=== PATIENT | female | born 1990 ===

== ENCOUNTER 2022-09-10 10:47 | Outpatient (REF) | payer BC, SELFPAY ==
[2022-09-10 12:13] LABS: Alanine Aminotransferase 13 U/L (0-31); Albumin Level 4.4 g/dL (3.5-5.0); Alkaline Phosphatase 75 U/L (39-117); Anion Gap 12 (12-20); Aspartate Amino Transferase 21 U/L (5-31); Bilirubin Total 0.7 mg/dL (0.0-1.0); Blood Urea Nitrogen 12 mg/dL (9-16); Calcium 9.8 mg/dL (8.4-10.2); Carbon Dioxide 26 mmol/L (22-29); Chloride 105 mmol/L (96-108); Cholesterol 180 mg/dL; Estimated Glomerular Filt Rate > 60; Glucose Random 92 mg/dL (60-115); HDL Cholesterol 68 mg/dL; LDL Cholesterol Calculated 104 mg/dl; Magnesium 2.1 mg/dL (1.6-2.6); Phosphorus 3.6 mg/dL (2.7-4.5); Potassium 4.3 mmol/L (3.3-5.1); Sodium 139 mmol/L (135-145); Total Protein 7.3 g/dL (6.5-8.0); Triglycerides 42 mg/dL
[2022-09-10 12:31] LABS: TSH reflex Free T4 1.79 uIU/mL (0.32-4.0); Vitamin D 25-OH Total 31.4 ng/mL (>30)
== END 2022-09-10 10:48 | disposition home or self-care (01) ==
LOC: HO.LAB 10:47
PROVIDERS: PCP Nurse Practitioner Family; Visit Provider Nurse Practitioner Family
DX: Z13.220 Encounter for screening for lipoid disorders (principal); Z13.29 Encounter for screening for other suspected endocrine disorder; Z13.21 Encounter for screening for nutritional disorder; R25.3 Fasciculation
CPT/HCPCS: 36415; 80053; 80061; 82306; 83735; 84100; 84443

== ENCOUNTER 2022-09-21 08:48 | Outpatient (AMB) | payer BC, SELFPAY ==
--- NOTE | 2022-09-21 09:02 | MHC.OFFVIS ---
Intake Vital Signs 09/21/22 09:05 Height 5 ft 2 in Weight 135 lb BMI 24.7 BP 118/78 Blood Pressure Location Rt brachial Position Sitting Pulse 69 Intake Visit Reasons: Umbilical hernia Intake Note: Patient here for umbilical hernia. 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 C/o abd spasms for the past 6 wks. C/ intermittent constipation. 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 She has had this since her youth. Has become progressively more symptomatic enlarging. She is otherwise tolerating a diet and having normal bowel habits. Chart was reviewed and patient evaluated [facility] Medical History Umbilical hernia Surgical History No pertinent past surgical history Family History Mother Diabetes Arthritis Pulmonary embolism Father No problems noted. Social History Housing: House Alcohol intake: current Alcohol intake frequency: holidays/special occasions only Patient Tobacco Use Status: Never used Tobacco e-Cigarette/Vaping Use: Never Used Substance Use Type: Marijuana service: No Current occupational status: student Current occupational exposures/hazards: No Cognitive needs: No Hearing needs: No Vision needs: No Physical Exam Vital Signs: Last Vital Signs Pulse 69 09/21/22 09:05 BP 118/78 09/21/22 09:05 BMI result Body Mass Index 24.7 Chest Other: Chest breath sounds bilaterally, HS 1 in 2 GI Other: Patient was examined both supine and standing with Valsalva. Abdomen soft, scaphoid. Approximately 3 cm incarcerated umbilical hernia. Assessment & Plan Assessment & Plan (1) Umbilical hernia: Code(s): K42.9 - Umbilical hernia without obstruction or gangrene Plan Risks, benefits, alternatives of open umbilical hernia with mesh reviewed the patient included but not limited to bleeding, infection, recurrence, numbness, pain, scarring, bowel injury and the patient wishes to proceed. All questions were answered. Arrangements will be made for this Coding Level of Care Code New Pt Level 4 (81215) Diagnoses Umbilical hernia K42.9
[2022-09-21 09:05] VITALS: BP 118/78; PULSE 69; BMI 24.7
== END 2022-09-21 09:31 | disposition home or self-care (01) ==
PROVIDERS: PCP Nurse Practitioner Family; Referring Provider Nurse Practitioner Family; Visit Provider Surgery
DX: K42.9 Umbilical hernia without obstruction or gangrene (principal)
CPT/HCPCS: 99204

== ENCOUNTER → 2022-09-21 08:48 | Outpatient (BNVA) | payer BC, SELFPAY | PROVIDERS: PCP Nurse Practitioner Family; Referring Provider Nurse Practitioner Family; Visit Provider Surgery ==

== ENCOUNTER 2022-10-09 05:56 | Day surgery (SDC) | payer BC, SELFPAY ==
[2022-10-04 08:28] VITALS: BMI 24.7
--- NOTE | 2022-10-08 12:47 | MHC.SHP ---
Pre-Procedural Eval Section A Date of Service: 10/08/22 The patient is an INPATIENT: No Changes since office visit: No Cold of Flu in the past 2 weeks, No New Medical Problems, No Changes in Medication and No Patient answered all questions The History & Physical has been completed within 30 days and I have reviewed it.: Yes Section B Chief Complaint: Umbilical hernia without obstruction or gangrene Allergies: Allergies Allergy/AdvReac Type Severity Reaction Status Date / Time No Known Allergies Allergy Verified 09/21/22 09:07 Plan I have reviewed the history and physical and performed a pertinent physical examination on my patient. No changes have occurred unless specified. Time Spent With Patient Time: Total time managing care of this patient today ____ minutes.
[2022-10-09 06:17] VITALS: BP 114/65; PULSE 66; RESP 16; TEMP 36.9; O2SAT 100; BMI 24.7
[2022-10-09 06:25] LABS: UPreg QC Valid YES; Urine Pregnancy NEGATIVE (NEGATIVE)
[2022-10-09] MEDS: Lactated Ringers 1,000 ML 100 ML IVCONT (06:39)
--- NOTE | 2022-10-09 07:11 | HO.ANESPROP2 ---
FORM[facility]LY [facility] Active Problems Active Problems: All Active Problems (Updated 10/09/22 @ 06:40 by Soledad Vega) Muscle twitching (Acute) Umbilical hernia (Acute) Family History Family History Mother Diabetes Arthritis Pulmonary embolism Father No problems noted. Surgical History Surgical History No pertinent past surgical history Umbilical hernia [place] teeth removed History of Problems with Anesthesia: No Social History Social History Housing: House Alcohol intake: current Alcohol intake frequency: holidays/special occasions only Patient Tobacco Use Status: Never used Tobacco e-Cigarette/Vaping Use: Never Used Use of substances other than those prescribed or required for medical reasons: Yes Substance Use Type: Marijuana Substance Use Type Other:: THC edibles Substance Use Frequency: Occasionally Are you DNR?: No Advance Directives: No Advance Directives Information Provided: Yes service: No Current occupational status: student Current occupational exposures/hazards: No Cognitive needs: No Hearing needs: No Vision needs: No Meds Allergies Allergy/AdvReac Type Severity Reaction Status Date / Time Penicillins [PCN] Allergy Vomiting Verified 10/09/22 06:24 Active Medications: Current Medications Lactated Ringer's (Lr) 1,000 mls @ 100 mls/hr IVCONT .Q10H MAGDA Last Admin: 10/09/22 06:39 Dose: 100 mls/hr Home Medications Medication Instructions Recorded Confirmed Last Taken Type multivitamin 1 tab PO DAILY 09/21/22 10/09/22 Unknown History Exam Exam Date and Time: October 09, 2022 0711 Height,Weight and Vital Signs: Height 5 ft 2 in Weight 61.235 kg Last Vital Signs Temp 98.4 F 10/09/22 06:17 Pulse 66 10/09/22 06:17 Resp 16 10/09/22 06:17 BP 114/65 10/09/22 06:17 Pulse Ox 100 10/09/22 06:17 O2 Del Method Room Air 10/09/22 06:17 Pertinent Lab Results Pertinent Lab Results: Laboratory Tests 10/09/22 06:15 Urine Test NEGATIVE Airway Mallampati Class: II TM Dist: >3cm Neck ROM: Full Loose/Missing/Broken Teeth: No Heart: RRR Lungs: CTA Assessment and Plan Assessment Anesthesia Assessment: Anesthesia Plan Discussed and Chart Reviewed Final Anesthetic Review History of Problems with Anesthesia: No NPO: Yes ASA Class: I Final Preanesthetic Review: Meds/Allgs Chart Reviewed, Consent Obtained/Reviewed and Anes Risks/Benef Reviewed Patient Risk: Low Procedure Risk: Low Anesthetic Plan Anesthetic Plan: MAC: Disposition: Standard PACU
--- NOTE | 2022-10-09 08:04 | W.PM.OPN ---
Operative Note Operative Note Date of Service: 10/09/22 Narrative: Preoperative diagnosis: [] Incarcerated umbilical hernia Postop diagnosis: [] Same Procedure [] repair incarcerated umbilical hernia with Bard mesh Surgeon: [] John Equipment Mechanic Specialist: [] dipesh Villeda Type of Anesthesia: [] MAC Indication for surgery: [] Proximally 2 cm incarcerated umbilical hernia with omental contents Findings: [] Patient is brought to the operating room, placed on operative table in a supine position, after an adequate level of MAC anesthesia was induced, the patient's abdomen was prepped and draped in usual sterile fashion and the proposed incisional site was infiltrated with 0.5% Marcaine/1% lidocaine. A supraumbilical curvilinear incision was made, carried down through skin, subcutaneous tissue, down to the hernia sac. This was from the posterior aspect of the umbilicus, and dissected down the fascia. Sac was opened where incarcerated omental contents were reduced. Redundant sac was amputated using Bovie. Fascia margins were circumferentially cleared. A Bard mesh was placed in the defect and the superficial layer of the mass was circumferentially sutured to the surrounding fascia using 0 Ethibond suture. At completion of the procedure, mesh was in good position with no tension and no gaps. Wound was irrigated, secured hemostasis. Wound was closed in the following manner; posterior aspect of the umbilicus was tacked to the wound floor using interrupted 3-0 Vicryl sutures. Skin was closed using interrupted inverted dermal 3-0 Vicryl sutures followed by Steri-Strips and sterile dressings. Sponge, needle, and instrument counts were reported to be correct. Patient tolerated the procedure well and emerged from anesthesia stable condition. EBL minimal
[2022-10-09 08:05] VITALS: BP 87/39; PULSE 78; RESP 16; TEMP 36.8; O2SAT 100
[2022-10-09 08:20] VITALS: BP 97/59; PULSE 58; RESP 16; O2SAT 100
[2022-10-09 08:35] VITALS: BP 100/67; PULSE 71; RESP 16; TEMP 36.3; O2SAT 100
== END 2022-10-09 08:55 | disposition home or self-care (01) ==
PROVIDERS: Anesthesiology; PCP Nurse Practitioner Family; Visit Provider Surgery
PROC: (CPT 49592; principal; 2022-10-09 07:30)
DX: K42.0 Umbilical hernia with obstruction, without gangrene (principal); R25.3 Fasciculation; F12.90 Cannabis use, unspecified, uncomplicated; Z88.0 Allergy status to penicillin
CPT/HCPCS: 49592; 81025; C1781; J0690; J2250; J2795; J3010

== ENCOUNTER → 2022-10-09 05:56 | Outpatient (BNV) | payer BC, SELFPAY | PROVIDERS: PCP Nurse Practitioner Family; Visit Provider Surgery | DX: K42.0 Umbilical hernia with obstruction, without gangrene (principal) | CPT/HCPCS: 49592 ==

== ENCOUNTER 2022-10-16 10:27 | Outpatient (AMB) | payer BC, SELFPAY ==
--- NOTE | 2022-10-16 10:35 | MHC.OFFVIS ---
Intake Vital Signs 10/16/22 10:40 Height 5 ft 2 in Weight 131 lb BMI 24.0 BP 107/65 Blood Pressure Location Lt brachial Position Sitting Pulse 68 Intake Visit Reasons: S/P umbilical hernia repair w/mesh Intake Note: This patient presents for a post-op assessment status post umbilical hernia repair with mesh. Patient denies complaints at this time. Autotransfusionist Required: No Accompanied by: Self / Same As Patient Allergies Penicillins [PCN] Allergy (Verified 10/16/22 10:43) Vomiting HPI HPI Comments History of Present Illness Details Patient presents for follow-up status post umbilical hernia repair. Aside from mild incisional discomfort she is doing well. She is doing and I present normal bowel habits. She is slowly but steadily increasing her activity level. Patient has been applying Betadine to her incision for unclear reasons. [facility] Surgical History History of umbilical hernia repair (~2022) No pertinent past surgical history Umbilical hernia [place] teeth removed Family History Mother Diabetes Arthritis Pulmonary embolism Father No problems noted. Social History Housing: House Alcohol intake: current Alcohol intake frequency: holidays/special occasions only Patient Tobacco Use Status: Never used Tobacco e-Cigarette/Vaping Use: Never Used Substance Use Type: Marijuana service: No Current occupational status: student Current occupational exposures/hazards: No Cognitive needs: No Hearing needs: No Vision needs: No Physical Exam Vital Signs: Last Vital Signs Pulse 68 10/16/22 10:40 BP 107/65 10/16/22 10:40 BMI result Body Mass Index 24.0 GI Other: Abdomen soft. Wound clean dry and intact. Some superficial Betadine burn but no obvious infection. Assessment & Plan Assessment & Plan (1) Umbilical hernia: Code(s): K42.9 - Umbilical hernia without obstruction or gangrene Plan Patient has been given local instructions including leaving the incision alone and will otherwise follow up p.r.n.. She should avoid strenuous activities for next 3-4 weeks. Coding Level of Care Code Global (91320) Diagnoses Umbilical hernia K42.9
[2022-10-16 10:40] VITALS: BP 107/65; PULSE 68; BMI 24.0
== END 2022-10-16 10:47 | disposition home or self-care (01) ==
PROVIDERS: PCP Nurse Practitioner Family; Visit Provider Surgery
DX: K42.9 Umbilical hernia without obstruction or gangrene (principal)
CPT/HCPCS: 99024

== ENCOUNTER → 2022-10-16 10:27 | Outpatient (BNVA) | payer BC, SELFPAY | PROVIDERS: PCP Nurse Practitioner Family; Visit Provider Surgery ==

== ENCOUNTER 2022-10-22 10:46 | Outpatient (AMB) | payer BC, SELFPAY ==
[2022-10-22 10:53] VITALS: BP 117/84; PULSE 78; BMI 24.0
--- NOTE | 2022-10-22 10:53 | A.OFFVIS_ITS ---
Intake Vital Signs 10/22/22 10:53 Height 5 ft 2 in Weight 131 lb BMI 24.0 BP 117/84 Blood Pressure Location Rt brachial Position Sitting Pulse 78 Intake Visit Reasons: s/p umbilical hernia repair, wound check Intake Note: Patient here s/p umbilical hernia. Reports incisions healing well. Denies bleeding, tenderness. C/o itch around incisions. Patient taking ibuprofen as needed. Did not take much of rx pain meds. Credit Products Officer Required: No Accompanied by: Self / Same As Patient Allergies Penicillins [PCN] Allergy (Verified 10/22/22 10:55) Vomiting HPI HPI Comments History of Present Illness Details Patient presents for follow-up. She has some itchiness of the incision and some mild incisional discomfort and is concerned that she may have an infection. She denies any discharge from the area. She is tolerating her diet. She is increasing her activity level. [facility] Surgical History History of umbilical hernia repair (~2022) No pertinent past surgical history Umbilical hernia [place] teeth removed Family History Mother Diabetes Arthritis Pulmonary embolism Father No problems noted. Social History Housing: House Alcohol intake: current Alcohol intake frequency: holidays/special occasions only Patient Tobacco Use Status: Never used Tobacco e-Cigarette/Vaping Use: Never Used Substance Use Type: Marijuana service: No Current occupational status: student Current occupational exposures/hazards: No Cognitive needs: No Hearing needs: No Vision needs: No Physical Exam Vital Signs: Last Vital Signs Pulse 78 10/22/22 10:53 BP 117/84 10/22/22 10:53 BMI result Body Mass Index 24.0 GI Other: Abdomen soft. Benign. Wound clean dry and intact. No evidence of any infection. Wound healing by good 1st intention. Assessment & Plan Assessment & Plan (1) Umbilical hernia: Code(s): K42.9 - Umbilical hernia without obstruction or gangrene Plan Patient was reassured. No infective process at this time. She has been given local instructions, and will follow-up p.r.n.. Coding Level of Care Code Global (28936) Diagnoses Umbilical hernia K42.9
== END 2022-10-22 11:06 | disposition home or self-care (01) ==
PROVIDERS: PCP Nurse Practitioner Family; Visit Provider Surgery
DX: K42.9 Umbilical hernia without obstruction or gangrene (principal)
CPT/HCPCS: 99024

== ENCOUNTER → 2022-10-22 10:46 | Outpatient (BNVA) | payer BC, SELFPAY | PROVIDERS: PCP Nurse Practitioner Family; Visit Provider Surgery ==

== ENCOUNTER 2023-02-12 11:23 | Outpatient (AMB) | payer BC, SELFPAY ==
--- NOTE | 2023-02-12 11:30 | A.OFFVIS_ITS ---
Intake Vital Signs 02/12/23 11:37 Height 5 ft 2 in Weight 128 lb BMI 23.4 BP 125/75 Blood Pressure Location Lt brachial Position Sitting Pulse 68 Intake Visit Reasons: pain surgical site, Hx umbilical hernia repair Intake Note: This patient presents for an assessment for pain surgical site, Hx umbilical hernia repair 10/09/2022. Patient c/o; reports pain and discomfort surgical site, reports normal bowel movements, reports eating less than usual. Maintenance Associate Required: No Accompanied by: Self / Same As Patient Allergies Penicillins [PCN] Allergy (Verified 02/12/23 11:38) Vomiting HPI HPI Comments History of Present Illness Details Patient complaining of incisional discomfort with extremes of motion occasionally at night. She is otherwise working out. She is tolerating her diet. Having regular bowel habits. He has no other incisional issues or complaints. [facility] Surgical History History of umbilical hernia repair (~2022) [place] teeth removed No pertinent past surgical history Umbilical hernia Family History Mother Diabetes Arthritis Pulmonary embolism Father No problems noted. Social History Housing: House Alcohol intake: current Alcohol intake frequency: holidays/special occasions only Patient Tobacco Use Status: Never used Tobacco e-Cigarette/Vaping Use: Never Used Substance Use Type: Marijuana service: No Current occupational status: student Current occupational exposures/hazards: No Cognitive needs: No Hearing needs: No Vision needs: No Physical Exam Vital Signs: Last Vital Signs Pulse 68 02/12/23 11:37 BP 125/75 02/12/23 11:37 BMI result Body Mass Index 23.4 GI Other: Abdomen soft. Very thin abdomen. Wound is clean dry and intact. No evidence of any infection or recurrence. Assessment & Plan Assessment & Plan (1) Umbilical hernia: Code(s): K42.9 - Umbilical hernia without obstruction or gangrene Plan Piercing was reassured. There is no evidence of any infection or recurrence. She should increase her activity level as tolerated. All questions were answered. Patient will follow-up p.r.n.. Coding Level of Care Code Global (10272) Diagnoses Umbilical hernia K42.9
[2023-02-12 11:37] VITALS: BP 125/75; PULSE 68; BMI 23.4
== END 2023-02-12 11:50 | disposition home or self-care (01) ==
PROVIDERS: PCP Nurse Practitioner Family; Visit Provider Surgery
DX: K42.9 Umbilical hernia without obstruction or gangrene (principal)
CPT/HCPCS: 99212

== ENCOUNTER → 2023-02-12 11:23 | Outpatient (BNVA) | payer BC, SELFPAY | PROVIDERS: PCP Nurse Practitioner Family; Visit Provider Surgery ==

== ENCOUNTER 2023-04-28 14:31 | Emergency (ER) | payer BC, SELFPAY ==
--- NOTE | ~2023-04-28 | CT_ITS ---
CT head/brain wo IV con CLINICAL INFORMATION: Reason for Exam head strike COMPARISON: No prior CT scan available for comparison. TECHNIQUE: Department standard protocol. This CT examination was performed using dose optimization techniques as appropriate, variously including the following: *Automated exposure control *Adjustment of mA and/or kV according to patient size (this includes techniques or standardized protocols for targeted exams where dose is matched to indication/reason for exam; i.e. extremities or head) *Use of iterative reconstruction technique DLP: 648 mGy-cm FINDINGS: CEREBRAL HEMISPHERES: There is no evidence of intra-axial or extra-axial mass, hemorrhage or acute infarct. BRAIN PARENCHYMA: Normal lange-white matter differentiation. SUBDURAL SPACE: No bleed. BASAL GANGLIA AND PINEAL GLAND: Unremarkable VENTRICLES: Symmetric and normal in size. CEREBELLUM AND BRAINSTEM: No space-occupying mass, hemorrhage or acute infarct. CEREBELLOPONTINE ANGLES: No lesion found. ORBITS: No intraorbital mass. VESSELS: Unremarkable SKULL BASE: Unremarkable INCLUDED SINUSES AT SKULL BASE: Clear SKULL AND SKIN: No fracture or bone lesion found. CT/CT head/brain wo IV con IMPRESSION: No CT evidence of intracranial space-occupying mass, bleed or infarct.
[2023-04-28 15:07] VITALS: BP 146/71; PULSE 67; RESP 14; TEMP 36.8; O2SAT 98; BMI 23.7
--- NOTE | 2023-04-28 15:11 | ED.HEATRA ---
HPI - Head Injury General Chief complaint: General Medical Stated complaint: Head injury Time Seen by Provider: 04/28/23 16:26 Source: patient Mode of arrival: ambulatory Limitations: no limitations History of Present Illness HPI Narrative: 32yo female with no known medical history here with complaints of frontal headache, photophobia, nausea after a head injury on Saturday at work. Patient reports a door was opened and hit her in the front of the head with ?brief LOC. Since then persistent headache, nausea, photophobia. NO vomiting, dizziness, neck pain. no history of previous concussions. No AC therapy use. Related Data Home Medications Medication Instructions Recorded Confirmed multivitamin 1 tab PO DAILY 09/21/22 10/09/22 Allergies Allergy/AdvReac Type Severity Reaction Status Date / Time Penicillins [PCN] Allergy Vomiting Verified 04/28/23 15:07 Review of Systems Review of Systems: Yes all other systems are reviewed and are negative Constitutional: Constitutional: Reports no additional constitutional complaints, Denies body ache(s), Denies chills, Denies fever(s), Reports headache(s) and Denies weakness Eyes: Eyes: Reports no additional eye complaints, Denies change in vision and Reports photophobia ENT: Reports system reviewed and no additional complaints, except as documented, Denies dizziness, Reports headache(s), Denies nasal congestion, Denies nasal discharge and Denies neck pain Cardiovascular: Cardiovascular: Reports no additional cardiovascular complaints, Denies chest pain, Denies leg edema and Denies dyspnea Respiratory: Respiratory: Reports no additional respiratory complaints, Denies cough and Denies dyspnea Gastrointestinal: Gastrointestinal: Reports no additional gastrointestinal complaints, Denies abdominal pain, Denies diarrhea, Reports nausea and Denies vomiting Genitourinary: Genitourinary: Reports no additional female genitourinary complaints and Denies urinary incontinence Musculoskeletal: Musculoskeletal: Reports no additional musculoskeletal complaints, Denies back pain, Denies arthralgias, Denies joint swelling, Denies neck pain, Denies numbness and Denies tingling Integumentary/Breasts: Skin/Breast: Reports system reviewed and no additional complaints, except as docu and Denies rash Neurologic: Reports system reviewed and no additional complaints, except as documented, Denies Abnormal speech present, Denies dizziness, Reports headache(s), Denies numbness, Denies tingling and Denies weakness PMF Past Medical History Attestation statement: The following information was validated with the patient. Source: old records reviewed and nursing notes reviewed Surgical History History of umbilical hernia repair (~2022) [place] teeth removed No pertinent past surgical history Umbilical hernia Family History Family History Mother Diabetes Arthritis Pulmonary embolism Father No problems noted. Social History Social History Housing: House Alcohol intake: current Alcohol intake frequency: holidays/special occasions only Patient Tobacco Use Status: Never used Tobacco e-Cigarette/Vaping Use: Never Used Substance Use Type: Marijuana Advance Directives: No Advance Directives Information Provided: No service: No Current occupational status: student Current occupational exposures/hazards: No Cognitive needs: No Hearing needs: No Vision needs: No Physical Exam Vital Signs: Vital Signs: Last Vital Signs Temp 98.3 F 04/28/23 15:07 Pulse 67 04/28/23 15:07 Resp 14 04/28/23 15:07 BP 146/71 H 04/28/23 15:07 Pulse Ox 98 04/28/23 15:07 O2 Del Method Room Air 04/28/23 15:07 BMI result Body Mass Index 23.7 Const: General: cooperative, healthy appearing, comfortable and no acute distress Orientation/consciousness: patient oriented x3 Limitations: no limitations HEENT: Other: No hemotympanum Head: Yes normal to inspection, No Mai's sign and No raccoon eyes Ears: hearing grossly normal bilaterally and TM's normal bilaterally General nose exam: Normal external nose present Face and sinus: Yes normal facial exam Mouth: Normal oral and palatal mucosa present Throat: Yes posterior oropharynx normal, Yes tonsils normal and Yes uvula midline Eyes: General: appearance normal, both eyes and all related structures Pupils: Equal, round and reactive pupils present Direct Ophthalmoscopy: photophobia Neck: Other: no cervical midline tenderness, step-offs deformities Neck: Yes normal visual inspection, Yes full ROM and Yes no lymphadenopathy Chest: Chest palpation & inspection: normal inspection of the chest Resp: Effort & Inspection: normal respiratory effort Auscultation: clear to auscultation bilaterally Cardio: Rate: regular rate Rhythm: regular rhythm Peripheral pulses: Peripheral pulses 2+ throughout GI: Inspection: Yes normal to inspection Palpation (GI): Soft to palpation and nontender Auscultation: normal bowel sounds Back/Spine/Pelvis: Thoracic/Lumbar Spine: thoracic and lumbar spine normal to inspection Skin: General skin exam: no rashes or lesions noted Neuro: General: patient oriented x3, moves all extremities, no focal motor deficits and normal sensation to monofilament Cranial nerves: Yes CN's II-XII intact bilaterally, Yes Equal, round and reactive pupils present, Yes Bilaterally intact EOM present, Yes Nystagmus not present, Yes Normal facial strength present and Yes Midline tongue present Cognition (Neuro): normal cognition Speech: No Abnormal speech present Gait exam (Neuro): Normal gait present Motor exam (neuro): 5/5 motor strength present throughout Sensory Exam: Normal double simultaneous stimulation for sensation Extrem: General: Yes normal to inspection, Yes no pedal edema and Yes no calf tenderness Course Course Course Narrative: RME:?32 yo female here for eval headaches, increased irritability and fatigue, and nausea without vomiting since being hit in the head by a door that was opening 6 days ago. +head strike, +LOC. No thinners. HERNANDEZ localized frontally. no vision changes. taking tylenol at home, last does 3 hours ago. denies fever, neck pain, back pain. AOX3. Exam nonfocal. CT head ordered. zofran given. Full HPI, ROS and PE to be performed by the primary ED provider. Reevaluation(s) Reevaluation #1: CT head is negative. Patient likely has a concussion. She is tolerating p.o.. Normal neuro exam. Will discharge home with head injury care. Reviewed worrisome signs and symptoms of when to return to the emergency room. Comfortable plan for discharge home. Medications Administered Discontinued Medications Generic Name Dose Route Start Last Admin Trade Name Freq PRN Reason Stop Dose Admin Ondansetron HCl 4 mg 04/28/23 15:14 04/28/23 15:17 Ondansetron Odt 4 Mg Tab.Kileydis TRANSLINGU 04/28/23 15:15 4 mg ONCE ONE Administration Medical Decision Making Medical Decision Making MDM Narrative: 32yo female with no known medical history here with complaints of frontal headache, photophobia, nausea after a head injury on Saturday at work. Patient reports a door was opened and hit her in the front of the head with ?brief LOC. Since then persistent headache, nausea, photophobia. NO vomiting, dizziness, neck pain. no history of previous concussions. No AC therapy use. normal neuro exam with no focal neurological deficits Due to persistence of symptoms will check CT head Differential Diagnosis Differential Diagnoses: The differential diagnosis associated with the presentation includes skull fracture, SAH, concussion Admission/Observation Consideration of admission/observation: Escalation of care including admission/observation considered CT head is negative with symptoms for 6 days after initial injury, no focal neurological deficits, maintaining p.o., no need for additional imaging or admission for observation Independent Interpretation I performed an independent interpretation of an: CT Scan Interpretation: I independently reviewed the CT scan agree with the radiology report Radiology Impression Discussion of test interpretation with radiology: I have reviewed the radiologist's reading. Radiologist Impression: ns (More??) Close Head CT (Signed) Tim Hunt - 04/28/23 Launch?Image [place] [id number] CT Scan Report Signed Patient: Brandi Marroquin MR#: [id number] : 1990 Acct:[id number] Age/Sex: 32 / F ADM Date: 04/28/23 Loc: HO.ED Attending Dr: Ordering Physician: Leslie Santos Date of Service: 04/28/23 Procedure(s): CT head/brain wo IV con Accession Number(s): [id number] cc: Physician,Unknown ; Leslie Santos~ CT head/brain wo IV con CLINICAL INFORMATION: Reason for Exam head strike COMPARISON: No prior CT scan available for comparison. TECHNIQUE: Department standard protocol. This CT examination was performed using dose optimization techniques as appropriate, variously including the following: *Automated exposure control *Adjustment of mA and/or kV according to patient size (this includes techniques or standardized protocols for targeted exams where dose is matched to indication/reason for exam; i.e. extremities or head) *Use of iterative reconstruction technique DLP: 648 mGy-cm FINDINGS: CEREBRAL HEMISPHERES: There is no evidence of intra-axial or extra-axial mass, hemorrhage or acute infarct. BRAIN PARENCHYMA: Normal lange-white matter differentiation. SUBDURAL SPACE: No bleed. BASAL GANGLIA AND PINEAL GLAND: Unremarkable VENTRICLES: Symmetric and normal in size. CEREBELLUM AND BRAINSTEM: No space-occupying mass, hemorrhage or acute infarct. CEREBELLOPONTINE ANGLES: No lesion found. ORBITS: No intraorbital mass. VESSELS: Unremarkable SKULL BASE: Unremarkable INCLUDED SINUSES AT SKULL BASE: Clear SKULL AND SKIN: No fracture or bone lesion found. CT/CT head/brain wo IV con IMPRESSION: No CT evidence of intracranial space-occupying mass, bleed or infarct. Prescription Management I considered prescription management with: Pain Medication Discharge Plan Discharge Clinical Impression: Concussion Patient Disposition: Home, Self-Care Instructions: Concussion (ED) Additional Instructions: limit screen time Get plenty of brain rest Increase fluids, rest Take Motrin, Tylenol or Excedrin for pain as needed Return for worsening symptoms Prescriptions: No Action multivitamin Tablet 1 tab PO DAILY Referrals: Physician,Unknown J [Primary Care Provider] - 1 week Stand Alone Forms: Work/School Release
[2023-04-28] MEDS: Ondansetron ODT 4 MG TAB.RAPDIS TRANSLINGU (15:17)
[2023-04-28 17:02] VITALS: BP 113/82; PULSE 69; RESP 18; TEMP 36.6; O2SAT 100
== END 2023-04-28 17:22 | disposition home or self-care (01) ==
PROVIDERS: Emergency Provider Student in an Organized Health Care Education/Training Program
DX: S06.0X0A Concussion without loss of consciousness, initial encounter (principal); R51.9 Headache, unspecified; R11.0 Nausea; H53.143 Visual discomfort, bilateral; Y29.XXXA Contact with blunt object, undetermined intent, initial encounter; Y93.9 Activity, unspecified; Y92.9 Unspecified place or not applicable; Y99.0 Civilian activity done for income or pay
CPT/HCPCS: 70450; 99283; 99284

== ENCOUNTER 2023-10-21 13:48 | Outpatient (AMB) | payer BC, SELFPAY ==
--- NOTE | 2023-10-21 13:48 | MHC.OFFVIS ---
Vital Signs 10/21/23 13:54 Height 5 ft 2 in Weight 132 lb BMI 24.1 BP 120/72 Blood Pressure Location Lt brachial Position Sitting Pulse 65 Intake Visit Reasons: hernia pain from previous surgery Intake Note: Patient is seen in office for follow up visit, post umbilical hernia on 10/09/22. 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 Status post umbilical hernia. Proximally year ago. She has no recurrence of the hernia best protrusion of her actual umbilicus and this has been a constant problem she presents here for further evaluation. She has no other incisional issues or complaints. She is tolerating a diet. Having regular bowel habits. She has no incisional pain per se. [facility] Surgical History History of umbilical hernia repair (~2022) [place] teeth removed No pertinent past surgical history Umbilical hernia Family History Mother Diabetes Arthritis Pulmonary embolism Father No problems noted. Social History Housing: House Alcohol intake: current Alcohol intake frequency: holidays/special occasions only Patient Tobacco Use Status: Never used Tobacco e-Cigarette/Vaping Use: Never Used Substance Use Type: Marijuana service: No Current occupational status: student Current occupational exposures/hazards: No Cognitive needs: No Hearing needs: No Vision needs: No Physical Exam Vital Signs: Last Vital Signs Pulse 65 10/21/23 13:54 BP 120/72 10/21/23 13:54 BMI result Body Mass Index 24.1 GI Other: Abdomen is soft, scaphoid, benign. Patient was examined both supine and standing with Valsalva. No evidence of recurrence of hernia. Patient has a little bit of a protruding umbilicus with underlying scar tissue but no evidence of any infection or recurrence. Assessment & Plan Assessment & Plan (1) Status post umbilical hernia repair, follow-up exam: Code(s): Z09 - Encounter for follow-up examination after completed treatment for conditions other than malignant neoplasm Category: Medical Plan At present, we will treat the patient conservatively. Should her concern for cosmesis persist, we are going to arrange for plastic surgery evaluation. I would not recommend any interventions because there is the risk of infecting the mesh should any revision be attempted for cosmesis. Patient understands. All questions answered. She will otherwise follow-up p.r.n.. Coding Level of Care Code Est Pt Level 4 (46154) Diagnoses Status post umbilical hernia repair, follow-up exam Z09
[2023-10-21 13:54] VITALS: BP 120/72; PULSE 65; BMI 24.1
== END 2023-10-21 14:16 | disposition home or self-care (01) ==
PROVIDERS: Visit Provider Surgery
DX: K42.9 Umbilical hernia without obstruction or gangrene (principal); Z09 Encounter for follow-up examination after completed treatment for conditions other than malignant neoplasm
CPT/HCPCS: 99213

== ENCOUNTER → 2023-10-21 13:48 | Outpatient (BNVA) | payer BC, SELFPAY | PROVIDERS: Visit Provider Surgery ==

== ENCOUNTER 2023-11-14 00:16 | Emergency (ER) | payer BC, SELFPAY ==
--- NOTE | ~2023-11-14 | US_ITS ---
EXAMINATION: US OBSTETRICAL CLINICAL INFORMATION: Reason for Exam 6 weeks with abdominal pain R/o ectopic COMPARISON: None available. TECHNIQUE: Real time transabdominal imaging with color and M-mode Doppler. FINDINGS: There is an intrauterine gestational sac containing a yolk sac and pole. Aspen-rump length of 0.8 cm corresponds to a gestational age of 6 weeks 6 days, yielding estimated date of delivery 07/03/2024. heartbeat is identified with a rate of 127 bpm. There is suggestion of a uterine fibroid measuring 2.0 x 1.8 x 1.3 cm. The right ovary measures 4.7 x 2.2 x 2.3 cm. Round mildly heterogeneous density in the right ovary measuring up to 2.3 cm may represent a corpus luteal cyst. The left ovary measures 1.5 x 1.1 x 1.1 cm and also appears unremarkable. No free fluid identified. US/US OB <= 14 wk fetus add gest IMPRESSION: 1. Single live intrauterine with estimated gestational age of 6 weeks 6 days (estimated date of delivery 07/03/2024). 2. Suggestion of a uterine fibroid measuring up to 2.0 cm. Electronically signed by: Leonard Nash MD 11/14/2023 03:59 AM EDT RP
[2023-11-14 00:25] VITALS: BP 121/72; PULSE 69; RESP 16; TEMP 36.7; O2SAT 100; BMI 23.8
[2023-11-14 00:41] LABS: MANUAL DIFF FLAG NO
[2023-11-14 00:43] LABS: Basophils Percent Auto 0.4 % (0-2); Eosinophils Absolute Auto 0.1 X10*3/uL (0.0-0.4); Eosinophils Percent Auto 0.6 % (0-4); Hematocrit 37.5 % (37.0-47.0); Hemoglobin 13.5 g/dl (12.0-16.0); Imm Gran Abs Auto 0.04 X10*3/uL (0.00-0.03); Imm Gran Pct Auto 0.4 % (0.0-0.4); Lymphocytes Absolute Auto 3.6 X10*3/uL (1.2-4.9); Lymphocytes Percent Auto 35.5 % (20-40); Mean Corpuscular Hemoglobin 28.1 pg (27.0-33.0); Mean Platelet Volume 12.3 fL (9.4-12.3); Monocytes Absolute Auto 0.7 X10*3/uL (0.1-1.2); Monocytes Percent Auto 6.6 % (2-11); Neutrophils Absolute Auto 5.8 x10*3/uL (2.0-8.3); Neutrophils Percent Auto 56.5 % (45-73); Platelet Count 203 X10*3/uL (160-400); Red Blood Count 4.81 X10*6/uL (4.20-5.50); Red Cell Distribution Width 13.6 % (11.0-16.0); White Blood Count 10.2 X10*3/uL (4.8-10.8)
[2023-11-14 00:44] LABS: Appearance Urine Clear; Color Urine Yellow; Glucose Urine UA Negative (Negative); Leukocyte Esterase Urine Negative (Negative); Nitrite Urine Negative (Negative); PH 5.5 (5.0-9.0); Urine Blood Negative (Negative); Urine Ketones Negative (Negative); Urine Protein Negative (Neg-Trace)
[2023-11-14 01:09] LABS: Alanine Aminotransferase 12 U/L (0-31); Albumin Level 4.4 g/dL (3.5-5.0); Alkaline Phosphatase 62 U/L (39-117); Anion Gap 14 (12-20); Aspartate Amino Transferase 16 U/L (5-31); Bilirubin Direct 0.2 mg/dL (0.0-0.5); Bilirubin Total 0.5 mg/dL (0.0-1.0); Blood Urea Nitrogen 11 mg/dL (9-16); Calcium 9.9 mg/dL (8.4-10.2); Carbon Dioxide 21 mmol/L (22-29); Chloride 106 mmol/L (96-108); Creatinine Clr Calc Pharmacy 75.7; Estimated Glomerular Filt Rate > 60; Glucose Random 93 mg/dL (60-115); Lipase 23 U/L (8-78); Sodium 137 mmol/L (135-145); Total Protein 7.1 g/dL (6.5-8.0)
--- NOTE | 2023-11-14 02:14 | ED.FEMALEGU ---
HPI - Female Genitourinary General Chief complaint: OB Stated complaint: + , cramping Time Seen by Provider: 11/14/23 02:07 Source: patient and family Mode of arrival: ambulatory Limitations: no limitations History of Present Illness ED Provider: DR. Hernández HPI Narrative: 32-year-old female 6 weeks , has been experiencing right side pelvic pain since yesterday is getting worse today, no vaginal bleed, no cramps, not dizziness or syncope. No history of STDs or PID. Abdominal surgical history significant for hernia repair. Related Data Home Medications ?Medication ?Instructions ?Recorded ?Confirmed multivitamin 1 tab PO DAILY 09/21/22 10/21/23 Allergies Allergy/AdvReac Type Severity Reaction Status Date / Time Penicillins [PCN] Allergy Vomiting Verified 11/14/23 00:27 Review of Systems Review of Systems: All other systems are reviewed and are negative Constitutional: Reports as per HPI and Reports no additional constitutional complaints Eyes: Reports as per HPI and Reports no additional eye complaints Reports system reviewed and no additional complaints, except as documented Cardiovascular: Reports as per HPI and Reports no additional cardiovascular complaints Respiratory: Reports as per HPI and Reports no additional respiratory complaints Gastrointestinal: Reports as per HPI and Reports no additional gastrointestinal complaints Genitourinary: Reports no additional female genitourinary complaints Musculoskeletal: Reports no additional musculoskeletal complaints Skin/Breast: Reports system reviewed and no additional complaints, except as docu Psychiatric: Reports no additional psychiatric complaints Endocrine: Reports no additional endocrine complaints Hematologic/Lymphatic: Reports no additional hematologic/lymphatic complaints Allergic/Immunologic: Reports no additional allergic/immunologic complaints Reports system reviewed and no additional complaints, except as documented and Reports Abnormal speech present [facility] Past Medical History Surgical History History of umbilical hernia repair (~2022) [place] teeth removed No pertinent past surgical history Umbilical hernia Family History Family History Mother Diabetes Arthritis Pulmonary embolism Father No problems noted. Social History Social History Housing: House Alcohol intake: current Alcohol intake frequency: holidays/special occasions only Patient Tobacco Use Status: Never used Tobacco e-Cigarette/Vaping Use: Never Used Substance Use Type: Marijuana Advance Directives: No Advance Directives Information Provided: Yes Do you have a plan to hurt others: No Plan service: No Current occupational status: student Current occupational exposures/hazards: No Cognitive needs: No Hearing needs: No Vision needs: No Physical Exam Vital Signs: Vital Signs: Last Vital Signs Temp 98.1 F 11/14/23 00:25 Pulse 69 11/14/23 00:25 Resp 16 11/14/23 00:25 BP 121/72 11/14/23 00:25 Pulse Ox 100 11/14/23 00:25 O2 Del Method Room Air 11/14/23 00:25 BMI result Body Mass Index 23.8 Vital signs have been reviewed and appear to be correct. Blood pressure elevated. Heart rate normal. Respiratory rate normal. Temperature normal. Oxygen saturation normal. Appearance: Alert. Oriented X3. No acute distress. Head: Normal external exam. Normocephalic. Atraumatic. No Mai signs noted. No raccoon eyes noted Eyes: PERRLA. EOMI. Conjunctiva and sclera normal. Eyelids normal. ENT: TM's Normal. Pharynx normal. Uvula midline. Moist mucous membranes. No trismus noted. No drooling noted. No muffled voice noted. Neck: Normal inspection. Neck supple. FROM. No adenopathy. Thyroid Normal. No meningeal signs. No neck mass noted. CVS: Normal heart rate and rhythm. Heart sound normal. No murmurs noted. Pulses normal throughout. Respiratory: No respiratory distress. Painless inspiration. Breath sounds normal. No wheezes/rales/rhonchi noted. Chest nontender. No accessory muscle usage noted or decreased air movement noted. Abdomen: Soft and nontender no right lower quadrant tenderness in particular.. Bowel sounds normal in all 4 quadrants. No distention noted. No organomegaly noted. No visible injury noted. Pelvic exam: Deferred for the ultrasound. Back: No CVA tenderness. Full range of motion noted. Skin: Skin warm and dry. Normal skin color. Normal skin turgor. No rashes/lesions/lacerations noted. Extremities: No lower extremity edema. Extremities exhibit normal range of motion. Extremities nontender. Neuro: Oriented X 3. Cranial nerve exam: II-XII are grossly intact No motor deficit. No sensory deficit. Reflexes normal. Course Reevaluation(s) Reevaluation #1: Labs are unremarkable, ABO Rh O positive, ultrasound showed IUP with no concern of ectopic . Patient was instructed to take Tylenol if needed for pain and follow-up with OBGYN Time: 05:28 Medical Decision Making Differential Diagnosis Differential Diagnoses: The differential diagnosis associated with the presentation includes (Normal , ectopic , ovarian cyst, ABO Rh incompatibility, electrolyte derangement, severe anemia.) Admission/Observation Consideration of admission/observation: Escalation of care including admission/observation considered Lab Data MDM Lab Attestation statement: I reviewed the patient's lab results. 11/14/23 00:35 11/14/23 00:35 Labs: Lab Results 11/14/23 11/14/23 Range/Units 00:35 00:36 WBC 10.2 (4.8-10.8) X10*3/uL RBC 4.81 (4.20-5.50) X10*6/uL Hgb 13.5 (12.0-16.0) g/dl Hct 37.5 (37.0-47.0) % MCV 78.0 L (80.0-98.0) fL MCH 28.1 (27.0-33.0) pg MCHC 36.0 H (31.0-35.0) g/dl RDW 13.6 (11.0-16.0) % Plt Count 203 (160-400) X10*3/uL MPV 12.3 (9.4-12.3) fL Immature Gran % (Auto) 0.4 (0.0-0.4) % Neut % (Auto) 56.5 (45-73) % Lymph % (Auto) 35.5 (20-40) % [place] % (Auto) 6.6 (2-11) % Eos % (Auto) 0.6 (0-4) % Baso % (Auto) 0.4 (0-2) % Lymph # (Auto) 3.6 (1.2-4.9) X10*3/uL [place] # (Auto) 0.7 (0.1-1.2) X10*3/uL Eos # (Auto) 0.1 (0.0-0.4) X10*3/uL Baso # (Auto) 0.0 (0.0-0.2) X10*3/uL Abs Immat Gran (auto) 0.04 H (0.00-0.03) X10*3/uL Absolute Neuts (auto) 5.8 (2.0-8.3) x10*3/uL Absolute Nucleated RBC 0.000 (0.0-0.012) X10*3/uL Nucleated RBC % (auto) 0.0 (0.0-0.2) /100WBC Sodium 137 (135-145) mmol/L Potassium 4.0 (3.3-5.1) mmol/L Chloride 106 (96-108) mmol/L Carbon Dioxide 21 L (22-29) mmol/L Anion Gap 14 (12-20) BUN 11 (9-16) mg/dL Creatinine 0.86 (0.5-1.4) mg/dL Estim Creat Clear Calc 75.7 Estimated GFR > 60 Random Glucose 93 (60-115) mg/dL Calcium 9.9 (8.4-10.2) mg/dL Total Bilirubin 0.5 (0.0-1.0) mg/dL Direct Bilirubin 0.2 (0.0-0.5) mg/dL AST 16 (5-31) U/L ALT 12 (0-31) U/L Alkaline Phosphatase 62 (39-117) U/L Total Protein 7.1 (6.5-8.0) g/dL Albumin 4.4 (3.5-5.0) g/dL Lipase 23 (8-78) U/L Beta HCG, Quant 29351 mIU/mL Urine Color Yellow Urine Appearance Clear Urine pH 5.5 (5.0-9.0) Ur Specific [place] 1.010 (1.005-1.025) Urine Protein Negative (Neg-Trace) mg/dL Urine Glucose (UA) Negative (Negative) mg/dL Urine Ketones Negative (Negative) mg/dL Urine Blood Negative (Negative) Urine Nitrite Negative (Negative) Ur Leukocyte Esterase Negative (Negative) Blood Type O Positive Independent Interpretation I performed an independent interpretation of an: Ultrasound (Limited OB ultrasound:. Single live intrauterine with estimated gestational age of 6 weeks 6 days (estimated date of delivery 07/03/2024). 2. Suggestion of a uterine fibroid measuring up to 2.0 cm. Elec) Radiology Impression Discussion of test interpretation with radiology: I have reviewed the radiologist's reading. Discharge Plan Discharge Clinical Impression: Abdominal pain during Patient Disposition: Home, Self-Care Instructions: Abdominal Pain in (ED) Additional Instructions: Follow-up with your OBGYN. Prescriptions: No Action multivitamin Tablet 1 tab PO DAILY Print Language: Other
[2023-11-14 06:14] VITALS: BP 121/72; PULSE 69; RESP 16; TEMP 36.7; O2SAT 100
== END 2023-11-14 06:14 | disposition home or self-care (01) ==
PROVIDERS: Emergency Provider Emergency Medicine
DX: O26.891 Other specified pregnancy related conditions, first trimester (principal); R10.2 Pelvic and perineal pain; Z3A.01 Less than 8 weeks gestation of pregnancy
CPT/HCPCS: 36415; 76802; 80048; 80076; 81003; 83690; 84702; 85025; 86900; 86901; 99282; 99284